=== PATIENT | male | born 1955 | race Caucasian/White ===

== ENCOUNTER 2017-12-24 10:29 | Emergency (ER) | payer SELFPAY ==
[2017-12-24 11:14] LABS: Basophils # (Auto) 0.1 K/mm3 (0.0-0.1); Basophils % (Auto) 0.7 % (0.0-1.8); Eosinophils # (Auto) 0.6 K/mm3 (0.0-0.4); Eosinophils % (Auto) 7.6 % (0.0-4.3); Hematocrit 45.4 % (35.5-45.6); Hemoglobin 14.9 gm/dl (11.8-15.2); Lymphocytes # (Auto) 2.3 K/mm3 (1.2-5.4); Lymphocytes % (Auto) 27.7 % (13.4-35.0); Mean Corpuscular HGB Conc 33 % (32-34); Mean Corpuscular Hemoglobin 28 pg (28-32); Mean Corpuscular Volume 85 fl (84-94); Monocytes # (Auto) 0.8 K/mm3 (0.0-0.8); Monocytes % (Auto) 9.7 % (0.0-7.3); Platelet Count 260 K/mm3 (140-440); Red Blood Count 5.36 M/mm3 (3.65-5.03)
[2017-12-24 11:31] LABS: BUN/Creatinine Ratio 8; Blood Urea Nitrogen 6 mg/dL (9-20); Hemolysis Index 7
--- NOTE | 2017-12-24 12:49 | Emergency Department Report ---
ED Chest Pain HPI - General Chief Complaint: Chest Pain Stated Complaint: CHEST PAIN Time Seen by Provider: 12/24/17 12:35 Source: patient Mode of arrival: Ambulatory Limitations: No Limitations - History of Present Illness Initial Comments: 62-year-old [place] male presents to the emergency department with complaint of left-sided chest pain that has been going on intermittently for the past few days but came more consistent since last night. The pain increases with breathing, but the patient also thinks that there might be a component of constipation that is affecting his chest pain. He is using the bathroom but says he has not having satisfactory bowel movements. He denies any fever, back pain, nausea, vomiting or diaphoresis. He also complains of a 2 month history of progressively worsening right hand pain that he says is causing some decrease ability to make a fist. He denies any rash, swelling, trauma to the area. He has not taken anything for his symptoms at presentation. He has a past medical history of hypertension. He denies any family history of early cardiac disease or . - Related Data Allergies Allergy/AdvReac Type Severity Reaction Status Date / Time aspirin Allergy Rash Verified 12/24/17 10:46 Heart Score - HEART Score History: Moderately suspicious EKG: Normal Age: 45-65 Risk factors: 1-2 risk factors Troponin: < normal limit HEART Score: 3 - Critical Actions Critical Actions: 0-3 pts:0.9-1.7%risk of adverse cardiac event.Candidate for discharge ED Review of Systems ROS: Stated complaint: CHEST PAIN Other details as noted in HPI Comment: All other systems reviewed and negative Constitutional: denies: chills, fever Eyes: denies: eye pain, eye discharge, vision change ENT: denies: ear pain, throat pain Respiratory: denies: cough, wheezing Cardiovascular: chest pain. denies: palpitations Gastrointestinal: constipation. denies: vomiting Genitourinary: denies: urgency, dysuria Musculoskeletal: arthralgia. denies: joint swelling Skin: denies: rash, lesions Neurological: denies: headache, weakness, paresthesias ED Past Medical Hx - Past Medical History Hx Hypertension: Yes - Surgical History Past Surgical History?: No - Social History Smoking Status: Never Smoker Substance Use Type: None ED Physical Exam - General Limitations: No Limitations - Other Other exam information: GENERAL: The patient is well-developed well-nourished. HENT: Normocephalic. Atraumatic. Patient has moist mucous membranes. EYES: Extraocular motions are intact. Pupils equal reactive to light bilaterally. NECK: Supple. Trachea is midline. CHEST/LUNGS: Clear to auscultation. There is no respiratory distress noted. Chest pain is not reproducible to palpation of the chest wall. HEART/CARDIOVASCULAR: Regular. There is no tachycardia. There is no murmur. ABDOMEN: Abdomen is soft, nontender. Patient has normal bowel sounds. There is no abdominal distention. SKIN: Skin is warm and dry. NEURO: The patient is awake, alert, and oriented. The patient is cooperative. The patient has no focal neurologic deficits. The patient has normal speech. MUSCULOSKELETAL: There is no tenderness or deformity. There is no limitation range of motion. There is no evidence of acute injury. ED Course Vital Signs 12/24/17 12/24/17 10:46 13:30 Temperature 98 F Pulse Rate 76 72 Respiratory 18 13 Rate Blood Pressure 142/94 Blood Pressure 145/91 [Right] O2 Sat by Pulse 96 99 Oximetry JUSTIN score - Justin Score Age > 65: (0) No Aspirin use within the Past 7 Days: (0) No 3 or more CAD Risk Factors: (0) No 2 or more Angina events in past 24 hrs: (1) Yes Known CAD with more than 50% Stenosis: (0) No Elevated Cardiac Markers: (0) No ST Deviation Greater than 0.5mm: (0) No JUSTIN Score: 1 ED Medical Decision Making - Lab Data Result diagrams: 12/24/17 10:55 12/24/17 10:55 - EKG Data -: EKG Interpreted by Me EKG shows normal: sinus rhythm, axis, intervals, QRS complexes, ST-T waves ( flattened T waves) Rate: normal - EKG Data When compared to previous EKG there are: previous EKG unavailable Interpretation: other (sinus rhythm, normal axis, normal rate, flattened T waves. No ST elevation PR) - Radiology Data Radiology results: image reviewed interpreted by me: Chest x-ray does not show any acute process. There are no pleural effusions, obvious pneumonia and there is no pneumothorax. Abdominal x-ray shows nonspecific nonobstructive bowel gas. - Medical Decision Making Patient presents with some left-sided chest pain that worsens with inspiration going on since yesterday but getting worse overnight. Chest x-ray does not show any acute process. EKG does not show any signs of ST elevation PR or dysrhythmia. Labs thus far have shown negative troponins 2 and a negative d- dimer. However the patient continues to have some discomfort and does have risk factors of age and hypertension. Also he has not had recent full cardiac workup including a stress test at any point. For these reasons my plan was to admit the patient to hospital for further evaluation and either a stress test or cardiac consultation. However the patient is refusing admission. I spoke with the patient and he understands that leaving at this point could lead to further discomfort, myocardial infarction, disability and/or even . Despite understanding the risks and having the capacity to make his own medical decisions, the patient still would like to leave AGAINST MEDICAL ADVICE. He has signed the AMA form but he understands that he can return to the emergency department if he changes his mind about admission or with any worsening of his symptoms. I'm still given him a referral for cardiology. - Differential Diagnosis costochondritis, GERD, PR, PE Critical Care Time: No Critical care attestation.: If time is entered above; I have spent that time in minutes in the direct care of this critically ill patient, excluding procedure time. ED Disposition Clinical Impression: Chest pain Qualifiers: Chest pain type: unspecified Qualified Code(s): R07.9 - Chest pain, unspecified Disposition: DC-07 LEFT AGAINST MED ADVICE Is pt being admited?: No Condition: Stable Instructions: Chest Pain (ED) Additional Instructions: Please return to the emergency department if you change your mind about admission or with any worsening of your symptoms. Referrals: LAKSHMI ROMO MD [Staff Physician] - [facility] Forms: AMA Form Time of Disposition: 14:08
--- NOTE | 2017-12-24 13:31 | XRay Report ---
ABDOMINAL SERIES: History: Chest pain, constipation. Erect chest film shows no acute or significant changes involving the heart or lung claire. There is no evidence of free air beneath the diaphragms. The gas pattern within the abdomen is unremarkable. There is no evidence of bowel dilatation, significant air-fluid levels, or masses. Organ shadows are unremarkable. IMPRESSION: Abdominal series within normal limits.
[2017-12-24 14:21] VITALS: BP 138/93
== END 2017-12-24 14:24 | disposition left against medical advice (07) ==
LOC: ED 10:29
DX: R07.1 Chest pain on breathing (principal); I10 Essential (primary) hypertension; Z88.6 Allergy status to analgesic agent
CPT/HCPCS: 36415; 74022; 80048; 84484; 85025; 85379; 93005; 93010